=== PATIENT | male | born 1955 | race Caucasian/White ===

== ENCOUNTER → 2020-08-21 07:00 | Outpatient (CLI) | payer OTHER, SELFPAY ==
[2020-08-21 08:23] LABS: Hemoglobin A1C% w Est Avg Glu 6.1 % (4.0-6.0)
[2020-08-21 08:27] LABS: Cholesterol 266 mg/dL (140-199); Glucose 131 mg/dL (80-110); HDL Cholesterol 32 mg/dL (40-60); LDL Cholesterol Calculated 157 mg/dL (<100); Triglycerides 383 mg/dL (35-150)
== END ==
PROVIDERS: Family Provider Family Medicine; PCP Registered Nurse Diabetes Educator; Referring Provider Registered Nurse Diabetes Educator; Visit Provider Registered Nurse Diabetes Educator
DX: E78.5 Hyperlipidemia, unspecified (principal); R73.01 Impaired fasting glucose
CPT/HCPCS: 36415; 80061; 82947; 83036

== ENCOUNTER → 2020-11-24 07:18 | Outpatient (CLI) | payer OTHER, SELFPAY ==
[2020-11-24 09:25] LABS: Cholesterol 198 mg/dL (140-199); Glucose 123 mg/dL (80-110); HDL Cholesterol 40 mg/dL (40-60); LDL Cholesterol Calculated 114 mg/dL (<100); Triglycerides 218 mg/dL (35-150)
== END ==
PROVIDERS: Family Provider Family Medicine; PCP Registered Nurse Diabetes Educator; Referring Provider Registered Nurse Diabetes Educator; Visit Provider Registered Nurse Diabetes Educator
DX: E78.5 Hyperlipidemia, unspecified (principal); R73.01 Impaired fasting glucose
CPT/HCPCS: 36415; 80061; 82947

== ENCOUNTER → 2021-05-17 06:52 | Outpatient (CLI) | payer OTHER, SELFPAY ==
[2021-05-17 08:28] LABS: Hematocrit 47.2 % (41-53); Hemoglobin 16.2 g/dL (13.5-17.5); Mean Corpuscular HGB Conc 34.3 % (30-36); Mean Corpuscular Hemoglobin 29.3 PG (26-34); Mean Corpuscular Volume 85.4 fL (80-100); Platelet Count 237 X10^3/uL (150-400); Red Blood Cell Count 5.53 X10^6/uL (4.5-5.9); White Blood Cell Count 5.8 X10^3/uL (4.5-11.0)
[2021-05-17 08:36] LABS: Hemoglobin A1C% w Est Avg Glu 6.1 % (4.0-6.0)
[2021-05-17 08:41] LABS: Alanine Aminotransferase 25 IU/L (<50); Albumin 4.5 g/dL (3.5-5.0); Albumin Globulin Ratio 1.6 (1.0-2.8); Alkaline Phosphatase 46 U/L (38-126); Aspartate Aminotransferase 25 IU/L (17-59); Bilirubin Total 0.6 mg/dL (0.2-1.3); Blood Urea Nitrogen 19 mg/dL (9-20); Calcium 9.5 mg/dL (8.4-10.2); Carbon Dioxide 30 mmol/L (22-32); Chloride 103 mmol/L (98-107); Cholesterol 281 mg/dL (140-199); Estimated Glomerular Filt Rate > 60.0 mL/min (>60); Globulin 2.8 g/dL (1.7-4.1); Glucose 119 mg/dL (80-110); HDL Cholesterol 34 mg/dL (40-60); HEMOLYSIS < 15 (0-50); LDL Cholesterol Calculated 200 mg/dL (<100); Potassium 4.4 mmol/L (3.4-5.1); Sodium 141 mmol/L (137-145); Total Protein 7.3 g/dL (6.3-8.2); Triglycerides 236 mg/dL (35-150)
[2021-05-17 09:13] LABS: TSH w/ Reflex to FT4 2.65 uIU/mL (0.47-4.68)
== END ==
PROVIDERS: Family Provider Family Medicine; PCP Registered Nurse Diabetes Educator; Referring Provider Registered Nurse Diabetes Educator; Visit Provider Registered Nurse Diabetes Educator
DX: E78.5 Hyperlipidemia, unspecified (principal); R73.01 Impaired fasting glucose
CPT/HCPCS: 36415; 80053; 80061; 83036; 84443; 85027

== ENCOUNTER → 2021-08-14 14:04 | Outpatient (CLI) | payer OTHER, SELFPAY ==
--- NOTE | 2021-08-14 14:16 | DI.US.S_ITS ---
PROCEDURE: US PERIPH VENOUS LOW EXTREM RT INDICATIONS: DVT rule out TECHNIQUE: Real-time imaging, as well as color and pulse Doppler interrogation, were performed of the lower extremity deep veins from the inguinal ligament to the popliteal fossa. COMPARISON: None. FINDINGS: The common femoral, femoral and popliteal veins are normally compressible, and free of intraluminal thrombus. Color and pulse Doppler demonstrate normal phasic intraluminal flow. There is normal augmentation response to distal compression maneuver. IMPRESSION: 1. No evidence of DVT in visualized right lower extremity veins. 2. Thrombosed varicosities are noted in medial aspect of distal right thigh at patient's reported area of redness and pain. Dictated by: Bereket Torres M.D. on 08/14/2021 at 16:14 Approved by: Bereket Torres M.D. on 08/14/2021 at 16:15
== END ==
PROVIDERS: Family Provider Family Medicine; PCP Registered Nurse Diabetes Educator; Referring Provider Family Medicine; Visit Provider Family Medicine
DX: I83.811 Varicose veins of right lower extremity with pain (principal); R22.41 Localized swelling, mass and lump, right lower limb; M79.89 Other specified soft tissue disorders
CPT/HCPCS: 93971

== ENCOUNTER → 2022-08-27 14:02 | Outpatient (CLI) | payer MEDICARE, OTHER, SELFPAY ==
[2022-08-27 14:34] LABS: Hemoglobin 14.5 g/dL (13.5-17.5); Mean Corpuscular HGB Conc 33.6 % (30-36); Mean Corpuscular Hemoglobin 28.5 PG (26-34); Mean Corpuscular Volume 84.9 fL (80-100); Platelet Count 257 X10^3/uL (150-400); Red Blood Cell Count 5.07 X10^6/uL (4.5-5.9); Red Cell Distribution Width 14.7 % (11.6-14.8); White Blood Cell Count 5.8 X10^3/uL (4.5-11.0)
[2022-08-27 14:45] LABS: Hemoglobin A1C% w Est Avg Glu 6.6 % (4.0-6.0)
[2022-08-27 14:56] LABS: Alanine Aminotransferase 44 IU/L (<50); Albumin 4.1 g/dL (3.5-5.0); Albumin Globulin Ratio 1.5 (1.0-2.8); Alkaline Phosphatase 77 U/L (38-126); Aspartate Aminotransferase 31 IU/L (17-59); BUN Creatinine Ratio 17.8 (6-22); Bilirubin Total 0.5 mg/dL (0.2-1.3); Bilirubin Unconjugated 0.2 mg/dL (0.0-1.1); Blood Urea Nitrogen 18 mg/dL (9-20); Calcium 8.6 mg/dL (8.4-10.2); Carbon Dioxide 27 mmol/L (22-32); Chloride 103 mmol/L (98-107); Cholesterol 153 mg/dL (140-199); Estimated Glomerular Filt Rate > 60 mL/min (>60); Globulin 2.7 g/dL (1.7-4.1); Glucose 115 mg/dL (80-110); HDL Cholesterol 37 mg/dL (40-60); HEMOLYSIS < 15 (0-50); LDL Cholesterol Calculated 47 mg/dL (<100); Potassium 4.4 mmol/L (3.4-5.1); Sodium 138 mmol/L (137-145); Total Protein 6.8 g/dL (6.3-8.2); Triglycerides 346 mg/dL (35-150)
[2022-08-27 15:23] LABS: TSH w/ Reflex to FT4 2.33 uIU/mL (0.47-4.68)
== END ==
PROVIDERS: Family Provider Family Medicine; PCP Registered Nurse Diabetes Educator; Referring Provider Registered Nurse Diabetes Educator; Visit Provider Registered Nurse Diabetes Educator
DX: E78.5 Hyperlipidemia, unspecified (principal); R73.01 Impaired fasting glucose; B35.1 Tinea unguium
CPT/HCPCS: 36415; 80053; 80061; 80076; 83036; 84443; 85027

== ENCOUNTER → 2022-10-15 06:47 | Outpatient (CLI) | payer MEDICARE, OTHER, SELFPAY ==
[2022-10-15 10:30] LABS: Alanine Aminotransferase 42 IU/L (<50); Albumin 4.2 g/dL (3.5-5.0); Albumin Globulin Ratio 1.7 (1.0-2.8); Alkaline Phosphatase 81 U/L (38-126); Aspartate Aminotransferase 32 IU/L (17-59); Bilirubin Total 0.7 mg/dL (0.2-1.3); Bilirubin Unconjugated 0.3 mg/dL (0.0-1.1); Cholesterol 176 mg/dL (140-199); Globulin 2.5 g/dL (1.7-4.1); Glucose 113 mg/dL (80-110); HDL Cholesterol 44 mg/dL (40-60); HEMOLYSIS < 15 (0-50); LDL Cholesterol Calculated 104 mg/dL (<100); Total Protein 6.7 g/dL (6.3-8.2); Triglycerides 138 mg/dL (35-150)
[2022-10-15 23:23] LABS: x Labcorp Estim. Avg Glu (eAG) 143 mg/dL (.); x Labcorp Hemoglobin A1c 6.6 % (4.8-5.6)
== END ==
PROVIDERS: Family Provider Family Medicine; PCP Registered Nurse Diabetes Educator; Referring Provider Registered Nurse Diabetes Educator; Visit Provider Registered Nurse Diabetes Educator
DX: B35.1 Tinea unguium (principal); E11.9 Type 2 diabetes mellitus without complications; E78.5 Hyperlipidemia, unspecified
CPT/HCPCS: 36415; 80061; 80076; 82947; 83036

== ENCOUNTER → 2022-12-04 11:45 | Outpatient (CLI) | payer MEDICARE, OTHER, SELFPAY ==
[2022-12-04 13:30] LABS: Alanine Aminotransferase 37 IU/L (<50); Albumin 4.2 g/dL (3.5-5.0); Albumin Globulin Ratio 1.8 (1.0-2.8); Alkaline Phosphatase 74 U/L (38-126); Aspartate Aminotransferase 33 IU/L (17-59); Bilirubin Total 0.5 mg/dL (0.2-1.3); Bilirubin Unconjugated 0.3 mg/dL (0.0-1.1); Globulin 2.4 g/dL (1.7-4.1); HEMOLYSIS < 15 (0-50); Total Protein 6.6 g/dL (6.3-8.2)
== END ==
PROVIDERS: Family Provider Family Medicine; PCP Registered Nurse Diabetes Educator; Referring Provider Registered Nurse Diabetes Educator; Visit Provider Registered Nurse Diabetes Educator
DX: B35.1 Tinea unguium (principal)
CPT/HCPCS: 36415; 80076

== ENCOUNTER → 2023-01-28 06:50 | Outpatient (CLI) | payer MEDICARE, OTHER, SELFPAY ==
[2023-01-28 08:58] LABS: Add Manual Diff / Slide Review NO; Basophils Absolute Auto 0 /uL (0-100); Basophils Percent Auto 0.4 % (0-2); Eosinophils Absolute Auto 300 /uL (0-450); Eosinophils Percent Auto 5.4 % (2-4); Hematocrit 43.2 % (41-53); Lymphocytes Absolute Auto 1700 /uL (1100-4500); Mean Corpuscular HGB Conc 34.8 % (30-36); Mean Corpuscular Volume 86.1 fL (80-100); Monocytes Absolute Auto 300 /uL (0-900); Monocytes Percent Auto 6.1 % (3-14); Neutrophils Absolute Auto 3000 /uL (1500-7000); Neutrophils Percent Auto 56.1 % (50-75); Platelet Count 228 X10^3/uL (150-400); Red Blood Cell Count 5.01 X10^6/uL (4.5-5.9); Red Cell Distribution Width 15.3 % (11.6-14.8); White Blood Cell Count 5.4 X10^3/uL (4.5-11.0)
[2023-01-28 09:21] LABS: Alanine Aminotransferase 41 IU/L (<50); Albumin 4.2 g/dL (3.5-5.0); Albumin Globulin Ratio 1.6 (1.0-2.8); Alkaline Phosphatase 75 U/L (38-126); Aspartate Aminotransferase 32 IU/L (17-59); Bilirubin Total 0.5 mg/dL (0.2-1.3); Bilirubin Unconjugated 0.4 mg/dL (0.0-1.1); Blood Urea Nitrogen 16 mg/dL (9-20); Calcium 8.9 mg/dL (8.4-10.2); Carbon Dioxide 26 mmol/L (22-32); Chloride 104 mmol/L (98-107); Cholesterol 147 mg/dL (140-199); Estimated Glomerular Filt Rate > 60 mL/min (>60); Globulin 2.7 g/dL (1.7-4.1); Glucose 116 mg/dL (80-110); HDL Cholesterol 37 mg/dL (40-60); HEMOLYSIS < 15 (0-50); LDL Cholesterol Calculated 78 mg/dL (<100); Potassium 4.9 mmol/L (3.4-5.1); Sodium 138 mmol/L (137-145); Total Protein 6.9 g/dL (6.3-8.2); Triglycerides 161 mg/dL (35-150)
[2023-01-28 09:26] LABS: Erythrocyte Sedimentation Rate 2 MM/HR (0-15)
[2023-01-28 10:02] LABS: C-Reactive Protein Quant < 0.5 mg/dL (<1.0)
== END ==
PROVIDERS: Family Provider Family Medicine; PCP Registered Nurse Diabetes Educator; Referring Provider Internal Medicine Rheumatology; Visit Provider Internal Medicine Rheumatology
DX: E78.5 Hyperlipidemia, unspecified (principal); M05.79 Rheumatoid arthritis with rheumatoid factor of multiple sites without organ or systems involvement; B35.1 Tinea unguium
CPT/HCPCS: 36415; 80053; 80061; 80076; 83520; 85025; 85651; 86140

== ENCOUNTER → 2023-03-13 11:01 | Outpatient (CLI) | payer MEDICARE, OTHER, SELFPAY ==
[2023-03-13 11:46] LABS: Alanine Aminotransferase 42 IU/L (<50); Albumin 4.3 g/dL (3.5-5.0); Albumin Globulin Ratio 1.8 (1.0-2.8); Alkaline Phosphatase 68 U/L (38-126); Aspartate Aminotransferase 30 IU/L (17-59); Bilirubin Total 0.5 mg/dL (0.2-1.3); Bilirubin Unconjugated 0.3 mg/dL (0.0-1.1); Globulin 2.4 g/dL (1.7-4.1); HEMOLYSIS < 15 (0-50); Total Protein 6.7 g/dL (6.3-8.2)
== END ==
PROVIDERS: Family Provider Family Medicine; PCP Registered Nurse Diabetes Educator; Referring Provider Registered Nurse Diabetes Educator; Visit Provider Registered Nurse Diabetes Educator
DX: B35.1 Tinea unguium (principal)
CPT/HCPCS: 36415; 80076

== ENCOUNTER → 2023-04-23 06:46 | Outpatient (CLI) | payer MEDICARE, OTHER, SELFPAY ==
[2023-04-23 07:50] LABS: Add Manual Diff / Slide Review NO; Basophils Absolute Auto 0 /uL (0-100); Basophils Percent Auto 0.5 % (0-2); Eosinophils Absolute Auto 300 /uL (0-450); Eosinophils Percent Auto 4.8 % (2-4); Hemoglobin 16.1 g/dL (13.5-17.5); Lymphocytes Absolute Auto 1900 /uL (1100-4500); Lymphocytes Percent Auto 34.5 % (25-40); Mean Corpuscular HGB Conc 34.3 % (30-36); Mean Corpuscular Hemoglobin 29.7 PG (26-34); Mean Corpuscular Volume 86.7 fL (80-100); Monocytes Absolute Auto 400 /uL (0-900); Monocytes Percent Auto 8.1 % (3-14); Neutrophils Absolute Auto 2800 /uL (1500-7000); Neutrophils Percent Auto 52.1 % (50-75); Platelet Count 195 X10^3/uL (150-400); Red Blood Cell Count 5.42 X10^6/uL (4.5-5.9); Red Cell Distribution Width 14.1 % (11.6-14.8); White Blood Cell Count 5.5 X10^3/uL (4.5-11.0)
[2023-04-23 07:58] LABS: Hemoglobin A1C% w Est Avg Glu 7.2 % (4.0-6.0)
[2023-04-23 08:10] LABS: Alanine Aminotransferase 35 IU/L (<50); Albumin 4.4 g/dL (3.5-5.0); Albumin Globulin Ratio 2.4 (1.0-2.8); Alkaline Phosphatase 78 U/L (38-126); Aspartate Aminotransferase 31 IU/L (17-59); Bilirubin Total 0.7 mg/dL (0.2-1.3); Bilirubin Unconjugated 0.4 mg/dL (0.0-1.1); Globulin 1.8 g/dL (1.7-4.1); HEMOLYSIS < 15 (0-50); Total Protein 6.2 g/dL (6.3-8.2)
[2023-04-23 08:14] LABS: Alanine Aminotransferase 35 IU/L (<50); Albumin 4.3 g/dL (3.5-5.0); Albumin Globulin Ratio 1.6 (1.0-2.8); Alkaline Phosphatase 76 U/L (38-126); Aspartate Aminotransferase 31 IU/L (17-59); BUN Creatinine Ratio 15.5 (6-22); Bilirubin Total 0.7 mg/dL (0.2-1.3); Blood Urea Nitrogen 16 mg/dL (9-20); C-Reactive Protein Quant 0.5 mg/dL (<1.0); Calcium 9.7 mg/dL (8.4-10.2); Carbon Dioxide 25 mmol/L (22-32); Chloride 104 mmol/L (98-107); Estimated Glomerular Filt Rate > 60 mL/min (>60); Globulin 2.7 g/dL (1.7-4.1); Glucose 146 mg/dL (80-110); HEMOLYSIS < 15 (0-50); Potassium 4.6 mmol/L (3.4-5.1); Sodium 137 mmol/L (137-145)
[2023-04-23 16:45] LABS: Erythrocyte Sedimentation Rate 4 MM/HR (0-15)
== END ==
PROVIDERS: Family Provider Family Medicine; PCP Registered Nurse Diabetes Educator; Referring Provider Specialist/Technologist Athletic Trainer; Visit Provider Specialist/Technologist Athletic Trainer
DX: E11.9 Type 2 diabetes mellitus without complications (principal); M05.79 Rheumatoid arthritis with rheumatoid factor of multiple sites without organ or systems involvement; B35.1 Tinea unguium; Z51.81 Encounter for therapeutic drug level monitoring
CPT/HCPCS: 36415; 80053; 80076; 83036; 85025; 85651; 86140

== ENCOUNTER → 2023-07-29 09:05 | Outpatient (CLI) | payer MEDICARE, OTHER, SELFPAY ==
[2023-07-29 10:08] LABS: Hemoglobin A1C% w Est Avg Glu 6.4 % (4.0-6.0)
[2023-07-29 10:28] LABS: Creatinine Urine Random 41.1 mg/dL
[2023-07-29 10:33] LABS: BUN Creatinine Ratio 17.2 (6-22); Blood Urea Nitrogen 17 mg/dL (9-20); Carbon Dioxide 25 mmol/L (22-32); Chloride 102 mmol/L (98-107); Estimated Glomerular Filt Rate > 60 mL/min (>60); Glucose 153 mg/dL (80-110); HEMOLYSIS < 15 (0-50); Potassium 4.7 mmol/L (3.4-5.1); Sodium 137 mmol/L (137-145)
[2023-07-29 10:37] LABS: Microalbumin Urine Random < 0.6 mg/dL (0-1.6)
== END ==
PROVIDERS: Family Provider Family Medicine; PCP Registered Nurse Diabetes Educator; Referring Provider Registered Nurse Diabetes Educator; Visit Provider Registered Nurse Diabetes Educator
DX: E11.9 Type 2 diabetes mellitus without complications (principal); I10 Essential (primary) hypertension
CPT/HCPCS: 36415; 80048; 82043; 82570; 83036

== ENCOUNTER 2023-10-14 08:46 | Day surgery (SDC) | payer MEDICARE, OTHER, SELFPAY ==
[2023-10-14] MEDS: LACTATED RINGERS 1,000 ML 42 ML IV (09:06)
[2023-10-14 09:07] VITALS: BP 141/93; PULSE 54; RESP 16; TEMP 36.1; O2SAT 100
--- NOTE | 2023-10-14 09:50 | P.HP_ITS ---
History of Present Illness History of Present Illness Date Patient Seen: 10/14/23 Time Patient Seen: 09:50 Chief complaint: Colonoscopy Narrative: 68-year-old man here for screening colonoscopy. Last colonoscopy 10 years ago. No family history of intestinal malignancy. No abdominal concerns today. FORMERLY [facility] Medical History Essential hypertension Diabetes mellitus type 2, controlled, without complications Varicose veins of right lower extremity with pain Dyslipidemia with high LDL and low HDL Carpal tunnel syndrome At risk for osteoporosis Steroid long-term use Dyslipidemia Mood disorder Raynauds syndrome Rheumatoid arthritis Impaired fasting blood sugar Surgical History Anesthesia History of eye surgery (~1984) History of bunionectomy History of carpal tunnel release Family History Father Diabetes mellitus History of heart disease Stroke Social History Smoking Status: Never smoker additional social history: 05/16/2020 Lives in [place] with his . He and his current have 4 adult sons, 2 by marriage and 9 grandchildren. 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 Patient enjoys fishing, hunting, t [employer]. Meds Home Medications and Allergies Home Medications Medication Instructions Recorded Confirmed Type omeprazole 20 mg capsule,delayed 20 mg PO QDAY ##0 05/20/16 10/14/23 History release sertraline 100 mg tablet (Zoloft) 100 mg PO DAILY #90 tabs 02/20/23 10/14/23 Rx methotrexate sodium 2.5 mg tablet 20 mg PO QWEEK 04/29/23 10/14/23 History lisinopril 10 mg tablet 10 mg PO DAILY #90 tabs 07/29/23 10/14/23 Rx rosuvastatin 10 mg tablet 10 mg PO BEDTIME #90 tabs 07/29/23 10/14/23 Rx meclizine 25 mg tablet 25 mg PO TID PRN motion sickness 08/06/23 10/14/23 Rx #30 tabs Allergies Allergy/AdvReac Type Severity Reaction Status Date / Time No Known Drug Allergies Allergy Verified 10/14/23 09:02 Exam Vital Signs (past 8 hours): - 10/14/23 09:07 Temperature 97.0 F L Pulse Rate 54 L Respiratory Rate 16 Blood Pressure 141/93 H Pulse Oximetry 100 Oxygen Delivery Method Room Air Oxygen Delivery Method Room Air Narrative Exam Narrative: General adult man alert oriented no acute distress Chest nonlabored respiration Extremities warm well perfused Assessment & Plan Assessment & Plan narrative: The patient requires colorectal screening and colonoscopy is recommended. Technical details were discussed. Risks, benefits, alternatives explained. Risks including but not limited to myocardial infarction, aspiration, bleeding, pain, missed lesion, incomplete examination, need for further radiographic studies, intestinal injury, and need for major abdominal surgery were discussed. All questions were answered to their satisfaction, and they are in agreement with this plan.
[2023-10-14 10:21] VITALS: BP 111/76; PULSE 63; RESP 12; TEMP 36.6; O2SAT 96
--- NOTE | 2023-10-14 10:24 | P.OP.COLON_ITS ---
Operative Date/Time/Diagnoses Date of procedure: 10/14/23 Time of procedure: 10:24 Pre-op diagnosis: Colorectal screening Procedure & Clinicians Study performed: Colonoscopy and polypectomy Same procedure as scheduled: Yes Indications: Colorectal screening Surgeon: Israel Landeros Procedure Notes Procedure in detail: The history and physical was performed/updated and the patient is ASA class is 2. The procedure was discussed in detail with the patient. Potential risks complications including infection, bleeding, missed diagnosis, perforation, need for surgery, and were explained. Their questions were answered and informed consent was obtained. Patient was brought to the procedure room and placed standard monitoring equipment. The patient's vital signs were monitored continuously throughout the entire procedure. Prior to starting time-out was performed. The patient was placed in the left lateral recumbent position. Procedural sedation was administered by anesthesia. Examination began with a thorough inspection of the perianal area there was no evidence of fissures, fistulae, external hemorrhoids or cutaneous malignancy. The colonoscopy scope was then placed into the anal canal and was advanced to the cecum, which was identified by the ileocecal valve, the appendiceal orifice and the confluence of the taenia. The scope was then slowly withdrawn examining colon thoroughly in all directions, irrigating it of any residual stool. The scope was retroflexed within the rectum The patient tolerated the procedure well. They will be discharged once criteria are met. The prep was of good/excellent quality. The withdrawl time was 7 mi nutes. FINDINGS * Ascending colon just distal to the ileocecal valve a 8 mm sessile polyp was noted. It was removed with cold snare. Despite an extensive search the resected polyp could not be retrieved. * Sigmoid diverticulosis mild Specimen(s): other (Ascending colon polyp) Impression: Colonic polyp x1 Post-procedure Recommendations: Colonoscopy in 5 years and High fiber diet Disposition: same day surgery
[2023-10-14 10:26] VITALS: PULSE 61; RESP 16; TEMP 36.6; O2SAT 98
[2023-10-14 10:30] VITALS: BP 104/79; PULSE 69; RESP 12; TEMP 36.6; O2SAT 99
[2023-10-14 10:37] VITALS: BP 120/87; PULSE 73; RESP 12; TEMP 36.6; O2SAT 98
== END 2023-10-14 10:46 | disposition home or self-care (01) ==
PROVIDERS: Family Provider Family Medicine; PCP Registered Nurse Diabetes Educator; Referring Provider Surgery; Visit Provider Surgery
PROC: 0DJD8ZZ Inspection of Lower Intestinal Tract, Via Natural or Artificial Opening Endoscopic (ICD-10-PCS; CPT 45378; principal; 2023-10-14 09:45)
DX: Z12.11 Encounter for screening for malignant neoplasm of colon (principal); K57.30 Diverticulosis of large intestine without perforation or abscess without bleeding
CPT/HCPCS: 45385

== ENCOUNTER → 2023-10-20 11:18 | Outpatient (CLI) | payer MEDICARE, OTHER, SELFPAY ==
--- NOTE | 2023-10-20 11:20 | DI.RAD.S_ITS ---
PROCEDURE: XR RIBS LT MIN 3V W CXR1V INDICATIONS: Left posterior rib pain after fall TECHNIQUE: 2 views of the ribs were acquired, along with a single view chest. COMPARISON: None. FINDINGS: Surgical changes and devices: None. Bones and chest wall: No fractures or dislocations. No suspicious bony lesions. Overlying soft tissues appear unremarkable. Lungs and pleura: No pleural effusions or pneumothorax. Lungs appear clear. Mediastinum: Mediastinal contours appear normal. Heart size is normal. IMPRESSION: No displaced rib fracture or pneumothorax. Dictated by: Rhys Jara M.D. on 10/20/2023 at 13:44 Approved by: Rhys Jara M.D. on 10/20/2023 at 13:46
== END ==
PROVIDERS: Family Provider Family Medicine; PCP Registered Nurse Diabetes Educator; Referring Provider Nurse Practitioner Family; Visit Provider Nurse Practitioner Family
DX: R07.81 Pleurodynia (principal)
CPT/HCPCS: 71101

== ENCOUNTER 2023-10-25 11:10 | Emergency (ER) | payer MEDICARE, OTHER, SELFPAY ==
[2023-10-25] VITALS (9 sets, daily range): BP systolic 122–172; BP diastolic 68–90; PULSE 52–71; RESP 10–23; TEMP 36.3; O2SAT 95–98; BMI 31.9
--- NOTE | 2023-10-25 11:23 | ED_ITS ---
HPI - Fall General Chief Complaint: Shortness of Breath/Dyspnea Stated Complaint: cant breathe something punctured lung Time Seen by Provider: 10/25/23 11:23 History of Present Illness HPI Narrative: Patient 68-year-old male history of hypertension diabetes dyslipidemia presenting today with ongoing left-sided chest pain. Reports that 5 days ago he was on a ladder but on the very last step when a leg of the ladder broke he fell backwards landing into the corner of a table or counter. He was actually seen evaluated the walk-in clinic that day he had an x-ray that did not show any fracture or pneumothorax. He was given tramadol which he has been taking. However he continues to have severe pain and spasming and feels like he is very short of breath. He is currently wearing an abdominal binder around his chest which he says helps. Denies hitting his head or any nausea or vomiting Related Data Home Medications Medication Instructions Recorded Confirmed omeprazole 20 mg capsule,delayed 20 mg PO QDAY ##0 05/20/16 10/20/23 release methotrexate sodium 2.5 mg tablet 20 mg PO QWEEK 04/29/23 10/20/23 Previous Rx's Medication Instructions Recorded sertraline 100 mg tablet (Zoloft) 100 mg PO DAILY #90 tabs 02/20/23 lisinopril 10 mg tablet 10 mg PO DAILY #90 tabs 07/29/23 rosuvastatin 10 mg tablet 10 mg PO BEDTIME #90 tabs 07/29/23 meclizine 25 mg tablet 25 mg PO TID PRN motion sickness 08/06/23 #30 tabs cyclobenzaprine 5 mg tablet 5 mg PO TID PRN muscle spasm #20 10/20/23 tabs hydrocodone 5 mg-acetaminophen 325 1 tab PO Q6H PRN pain #20 tabs 10/25/23 mg tablet methocarbamol 750 mg tablet 1,500 mg (2 x 750 mg) PO Q12HR #20 10/25/23 tabs Allergies Allergy/AdvReac Type Severity Reaction Status Date / Time No Known Drug Allergies Allergy Verified 10/25/23 11:32 Patient History Medical History Essential hypertension Diabetes mellitus type 2, controlled, without complications Varicose veins of right lower extremity with pain Dyslipidemia with high LDL and low HDL Carpal tunnel syndrome At risk for osteoporosis Steroid long-term use Dyslipidemia Mood disorder Raynauds syndrome Rheumatoid arthritis Impaired fasting blood sugar Surgical History Anesthesia History of eye surgery (~1984) History of bunionectomy History of carpal tunnel release Family History Father Diabetes mellitus History of heart disease Stroke Social History Smoking Status: Never smoker additional social history: 05/16/2020 Lives in [place] with his . He and his current have 4 adult sons, 2 by marriage and 9 grandchildren. 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 Patient enjoys fishing, hunting, traveling. Smoking Status: Never smoker alcohol intake frequency: a few times a month Substance Use Type: does not use Exam Initial Vital Signs Initial Vital Signs: Vital Signs Pulse Rate 63 10/25/23 11:23 Respiratory Rate 23 10/25/23 11:23 GENERAL: Alert 68-year-old male appears in pain and in [no acute] distress. HEENT: Head atraumatic,EOMI, pupils reactive, face symmetric, [moist] mucous membranes CARDIOVASCULAR: Regular rate and rhythm without murmurs, rubs or gallops. RESPIRATORY: Breath sounds equal bilaterally, no wheezes rales or rhonchi. BACK: No vertebral tenderness left side rib 8 does show some contusion no paradoxical movement ABDOMEN: Soft, nontender. Normoactive bowel sounds all 4 quadrants. No guarding or rebound. EXTREMITIES: Normal range of motion, no clubbing or edema. Neurovascularly intact NEUROLOGICAL: Alert and oriented x4. SKIN: Warm, dry, no laceration, no petechiae, no rashes or lesions. Course Orders Ordered: ED Orders 10/25/23 11:23 CT chest w con Stat 10/25/23 11:28 CBC Auto Diff [Complete Blood Count AUTO DIFF] Stat CMP [Comprehensive Metabolic Panel] Stat Discontinued Medications Diazepam (Diazepam 10 Mg/2 Ml Syringe) 2 mg IV NOW ONE Stop: 10/25/23 12:11 Last Admin: 10/25/23 12:18 Dose: 2 mg Documented By: SPF Hydromorphone HCl (Hydromorphone 1 Mg Inj) 1 mg IV NOW ONE Stop: 10/25/23 11:24 Last Admin: 10/25/23 11:36 Dose: 1 mg Documented By: SINGH Ketorolac Tromethamine (Ketorolac 30 Mg/Ml Vial) 15 mg IV NOW ONE Stop: 10/25/23 12:11 Last Admin: 10/25/23 12:18 Dose: 15 mg Documented By: SINGH Vital Signs Vital signs: Vital Signs - 8 hr 10/25/23 11:23 10/25/23 11:24 10/25/23 11:30 Temperature 97.3 F L Pulse Rate 63 71 58 L Respiratory Rate 23 16 16 Blood Pressure 172/90 H Pulse Oximetry 97 Oxygen Delivery Method Room Air 10/25/23 11:31 10/25/23 11:31 10/25/23 12:09 Temperature Pulse Rate 59 L 59 L Respiratory Rate 18 21 Blood Pressure 172/90 H Pulse Oximetry 98 97 Oxygen Delivery Method Room Air 10/25/23 12:30 10/25/23 12:30 10/25/23 13:00 Temperature Pulse Rate 58 L 57 L Respiratory Rate 12 22 Blood Pressure 122/69 Pulse Oximetry 95 96 Oxygen Delivery Method 10/25/23 13:01 10/25/23 13:30 10/25/23 13:30 Temperature Pulse Rate 52 L Respiratory Rate 10 L Blood Pressure 147/81 H 132/68 Pulse Oximetry 95 Oxygen Delivery Method MDM - Fall Lab Data 10/25/23 11:28 10/25/23 11:28 Labs: Lab Results 10/25/23 Range/Units 11:28 WBC 7.9 (4.5-11.0) X10^3/uL RBC 5.50 (4.5-5.9) X10^6/uL Hgb 16.6 (13.5-17.5) g/dL Hct 48.1 (41-53) % MCV 87.4 (80-100) fL MCH 30.1 (26-34) PG MCHC 34.5 (30-36) % RDW 14.7 (11.6-14.8) % Plt Count 273 (150-400) X10^3/uL Neut % (Auto) 72.7 (50-75) % Lymph % (Auto) 18.9 L (25-40) % [place] % (Auto) 4.9 (3-14) % Eos % (Auto) 3.0 (2-4) % Baso % (Auto) 0.5 (0-2) % Neut # (Auto) 5700 (8004-3051) /uL Lymph # (Auto) 1500 (6961-3731) /uL [place] # (Auto) 400 (0-900) /uL Eos # (Auto) 200 (0-450) /uL Baso # (Auto) 0 (0-100) /uL Sodium 140 (137-145) mmol/L Potassium 5.0 (3.4-5.1) mmol/L Chloride 106 (98-107) mmol/L Carbon Dioxide 24 (22-32) mmol/L BUN 19 (9-20) mg/dL Creatinine 1.10 (0.66-1.25) mg/dL Estimated GFR > 60 (>60) mL/min BUN/Creatinine Ratio 17.3 (6-22) Glucose 175 H (80-110) mg/dL Calcium 9.3 (8.4-10.2) mg/dL Total Bilirubin 0.7 (0.2-1.3) mg/dL AST 34 (17-59) IU/L ALT 31 (<50) IU/L Alkaline Phosphatase 77 (38-126) U/L Total Protein 7.6 (6.3-8.2) g/dL Albumin 4.8 (3.5-5.0) g/dL Globulin 2.8 (1.7-4.1) g/dL Albumin/Globulin Ratio 1.7 (1.0-2.8) Imaging Data CT scan - chest: Radiologist's Impression: PROCEDURE: CT CHEST W CON INDICATIONS: left rib pain after fall 5 days ago TECHNIQUE: After the administration of intravenous contrast, 5 mm thick sections acquired from the pulmonary apices to the posterior costophrenic angles. 1 mm axial lung, 5 mm thick coronal and sagittal reformats and 7 mm axial MIP were acquired. For radiation dose reduction, the following was used: automated exposure control, adjustment of mA and/or kV according to patient size. COMPARISON: None. FINDINGS: Image quality: Diagnostic. Lower Neck: No enlarged lymph nodes. Thyroid: No thyroid nodules which require sonographic follow up, per consensus guidelines. Axillae: No enlarged lymph nodes. Chest Wall: Unremarkable. Bones: Posterior fractures of left T7 and T8. Lungs and Pleura: No pneumothorax or pleural effusions. No consolidation. Within the apex of the left lower lobe there is a 6 x 7 millimeter solid pulmonary nodule cm axial image 112. Small left lower lobe basilar nodule measuring 5 millimeters (axial image 189. Solid right lower lobe pulmonary nodule measuring 9 x 4 millimeters with axial image 173. Right lower lobe pulmonary nodule measuring 3 millimeters axial image 136. Heart: Heart size is normal. No pericardial effusion. Mild coronary artery calcifications. Thoracic Vessels: The aorta and pulmonary arteries demonstrate normal size. Mediastinum and Melissa: No enlarged lymph nodes. Esophagus: No wall thickening. No hiatal hernia. Upper Abdomen: Visualized upper abdomen solid organs and bowel loops appear normal. IMPRESSION: Nondisplaced posterior left rib fractures of T7 and T8. No pneumothorax. Nonspecific pulmonary nodules averaging up to 7 millimeters. Recommend follow- up CT chest in 6-12 months to evaluate for stability. If the patient is at risk for lung cancer an additional evaluation at 18-24 months can be considered Dictated by: Regulo Gardner M.D. on 10/25/2023 at 11:18 [facility] Narrative Medical decision making narrative: Patient 68-year-old male who presents today after a fall 4 days ago with ongoing left-sided back and rib pain. X-ray initially was negative for fracture but he continues to have significant spasm. Blood work has been reviewed no anemia present hemoglobin 16.6 hematocrit 48.1, electrolytes and kidney function are stable CT chest does show nondisplaced rib fractures left side 7 and 8. No pneumothorax. Bedside fast exam does not show any positive fluid Patient is found to have 2 nondisplaced rib fractures. Supportive care only. He has a binder on when he can initially discussed with him binder not appropriate he is given incentive spirometer and different pain medication. Discharge Plan Departure Patient Disposition: Home Clinical Impression: Closed rib fracture Qualifiers: Encounter type: initial encounter Rib fracture type: multiple ribs Laterality: left Qualified Code(s): S22.42XA - Multiple fractures of ribs, left side, initial encounter for closed fracture Instructions: Rib Fracture Activity Restrictions/Additional Instructions: *You have been diagnosed with rib fractures 7 and 8 *What to do: At this time he is incentive spirometer about 10 times an hour while awake to help prevent pneumonia. You may need to sleep in an upright position. Use your hand to help splint for pain *Continue to take medications as directed Ibuprofen 600 mg every 6 hours if needed for zwcy-wo-sovoztta pain [place] 1-2 tablets every 6 hours if needed for severe pain Methocarbamol 1500 mg every 12 hours if you have muscle spasm *Follow up with your primary care provider in 2-3 days or call [phone] *Return to ER if you should have increasing pain shortness of breath or any new, worsening or concerning symptoms CONTROLLED SUBSTANCE DISCHARGE (Narcotoic/benzodiazepine/Flexeril/Phenergan) 1. You have been prescribed narcotic medications, it does have acetaminophen/Tylenol/paracetamol in it, DO NOT TAKE MORE THAN 4,00mg in 24 hours of Tylenol. TRAMADOL DOES NOT CONTAIN TYLENOL 2. Please understand that we cannot provide further refills of narcotics, benzodiazepines or controlled substances through the ED and her pain management will need to be through your provider. 3. While on these medications you cannot drive or operate heavy machinery. 4. You cannot sign legal documents or perform any duties such as this. 5. As long as you're taking opiate pain medications he should also be taking a stool softener such as Colace, Dulcolax, MiraLAX or prune juice, to help avoid constipation. Prescriptions: New hydrocodone-acetaminophen 5-325 mg tablet 1 tab PO Q6H PRN (Reason: pain) Qty: 20 0RF methocarbamol 750 mg tablet 1,500 mg PO Q12HR Qty: 20 0RF No Action cyclobenzaprine 5 mg tablet 5 mg PO TID PRN (Reason: muscle spasm) Qty: 20 0RF omeprazole 20 mg capsule,delayed release(DR/EC) 20 mg PO QDAY Qty: 0 meclizine 25 mg tablet 25 mg PO TID PRN (Reason: motion sickness) Qty: 30 2RF methotrexate sodium 2.5 mg tablet 20 mg PO QWEEK lisinopril 10 mg tablet 10 mg PO DAILY Qty: 90 3RF rosuvastatin 10 mg tablet 10 mg PO BEDTIME Qty: 90 1RF sertraline [Zoloft] 100 mg tablet 100 mg PO DAILY Qty: 90 3RF Rx Instructions: increased dose to 100mg daily as discussed Referrals: Tyrone Dallas ARNP [Primary Care Provider] - Stand Alone Forms: Patient Portal/API
[2023-10-25] MEDS: HYDROMORPHONE 1 MG INJ IV (11:36)
[2023-10-25 11:41] LABS: Add Manual Diff / Slide Review NO; Basophils Absolute Auto 0 /uL (0-100); Basophils Percent Auto 0.5 % (0-2); Eosinophils Absolute Auto 200 /uL (0-450); Hematocrit 48.1 % (41-53); Hemoglobin 16.6 g/dL (13.5-17.5); Lymphocytes Absolute Auto 1500 /uL (1100-4500); Lymphocytes Percent Auto 18.9 % (25-40); Mean Corpuscular HGB Conc 34.5 % (30-36); Mean Corpuscular Hemoglobin 30.1 PG (26-34); Mean Corpuscular Volume 87.4 fL (80-100); Monocytes Absolute Auto 400 /uL (0-900); Monocytes Percent Auto 4.9 % (3-14); Neutrophils Absolute Auto 5700 /uL (1500-7000); Neutrophils Percent Auto 72.7 % (50-75); Platelet Count 273 X10^3/uL (150-400); Red Cell Distribution Width 14.7 % (11.6-14.8); White Blood Cell Count 7.9 X10^3/uL (4.5-11.0)
[2023-10-25 11:48] LABS: Alanine Aminotransferase 31 IU/L (<50); Albumin 4.8 g/dL (3.5-5.0); Albumin Globulin Ratio 1.7 (1.0-2.8); Alkaline Phosphatase 77 U/L (38-126); Aspartate Aminotransferase 34 IU/L (17-59); BUN Creatinine Ratio 17.3 (6-22); Bilirubin Total 0.7 mg/dL (0.2-1.3); Blood Urea Nitrogen 19 mg/dL (9-20); Calcium 9.3 mg/dL (8.4-10.2); Carbon Dioxide 24 mmol/L (22-32); Chloride 106 mmol/L (98-107); Estimated Glomerular Filt Rate > 60 mL/min (>60); Globulin 2.8 g/dL (1.7-4.1); Glucose 175 mg/dL (80-110); HEMOLYSIS 22 (0-50); Sodium 140 mmol/L (137-145); Total Protein 7.6 g/dL (6.3-8.2)
[2023-10-25] MEDS: KETOROLAC 30 MG/ML VIAL 15 MG IV (12:18)
[2023-10-25] MEDS: diazePAM 10 MG/2 ML SYRINGE 2 MG IV (12:18)
== END 2023-10-25 13:50 | disposition home or self-care (01) ==
PROVIDERS: Emergency Provider Emergency Medicine; Family Provider Family Medicine; PCP Registered Nurse Diabetes Educator
DX: S22.42XA Multiple fractures of ribs, left side, initial encounter for closed fracture (principal); W11.XXXA Fall on and from ladder, initial encounter
CPT/HCPCS: 36415; 71260; 80053; 85025; 96374; 96375; 99284; J1170; J1885; J3360; Q9967